=== PATIENT | female | born 1990 | race Caucasian/White ===

== ENCOUNTER 2023-06-01 18:32 | Emergency (ER) | payer BC, SELFPAY ==
[2023-06-01 18:36] VITALS: BP 120/78
[2023-06-01 18:57] LABS: % Basophils 1.3 % (0-2); % Eosinophils 1.5 % (0-6); % Immature Granulocytes 0.1 % (0-0.5); % Lymphocytes 40.1 % (20.5-51.1); % Monocytes 6.9 % (1.7-9.3); % Neutrophils 50.1 % (42.2-75.2); Absolute Basophils 0.1 10^3/uL (0-0.2); Absolute Eosinophils 0.1 10^3/uL (0-0.7); Absolute Lymphocytes 3.1 10^3/uL (1.2-3.4); Absolute Monocytes 0.5 10^3/uL (0.1-0.6); Absolute Neutrophils 3.9 10^3/uL (1.4-6.5); Hematocrit 37.8 % (37.0-47.0); Hemoglobin 13.4 g/dL (12.0-16.0); Mean Corp Hgb Conc. 35.4 g/dL (33.0-37.0); Mean Corpuscular Hgb 31.9 pg (27.0-31.0); Mean Platelet Volume 9.4 fL (7.4-10.4); Nucleated Red Blood Cells % 0 %; Platelet Count 331 10^3/uL (130-400); Red Cell Dist. Width 12.7 % (11.5-14.5); White Blood Cell Count 7.8 10^3/uL (4.8-10.8)
[2023-06-01 19:14] LABS: HCG, Serum Qualitative Screen Negative
[2023-06-01 19:17] LABS: ALT (SGPT) 12 U/L (0-35); AST (SGOT) 17 U/L (14-36); Albumin 4.5 g/dl (3.5-5.0); Alkaline Phosphatase 41 U/L (38-126); Blood Urea Nitrogen 16 mg/dl (7-17); Calcium 10.1 mg/dl (8.4-10.2); Carbon Dioxide 24 mmol/L (22-30); Chloride 103 mmol/L (98-107); Glucose 113 mg/dl (70-99); Potassium 4.6 mmol/L (3.5-5.1); Sodium 138 mmol/L (135-145); Total Bilirubin 0.6 mg/dl (0.2-1.3); eGFR > 60.00
[2023-06-01 19:26] LABS: Troponin I < 0.012 ng/ml
--- NOTE | 2023-06-01 20:01 | ED.GENMED ---
History of Present Illness
<Luciana Grullon TOBACCO STEMMER - Last Filed: 06/03/23 17:34>
General
Chief Complaint: Chest Pain
Source: patient
Exam Limitations: none
Time Seen by Provider: 06/01/23 19:49
Nursing documentation reviewed up to this point in time: agreed with
Travel History
Have you had any contact with someone who has COVID-19?: No
Do you have any symptoms of coronavirus? Fever > 100 degrees, chills, cough, shortness of breath, sore throat, loss of taste or smell, muscle aches, or headache?: No
History of Present Illness
History of Present Illness:
32-year-old female with no significant past medical history, takes no medications, states today at 10:30 AM she was sitting at her desk at work and developed right upper chest pain and pain at the same level in her back with some shortness of
breath. She states the pain came on gradually. A little while later as she reached for something with her right arm the pain became significantly worse, 9/10 for 30 seconds then it slowly faded. She had a similar episode again later as she
reached for something with her right arm. She still feels slight residual soreness in the area now 1/10.
She went to urgent care and had an EKG which they told her was abnormal and she should come here to rule out 'a clot.'
She denies shortness of breath at this time. She denies feeling faint or dizzy.
Past History
<Luciana Grullon, TOBACCO STEMMER - Last Filed: 06/03/23 17:34>
Past History
ED Past Medical History: None
ED Past Surgical History: Orthopedic
Social History
Tobacco: Non-smoker
Alcohol: Occasional
Living: with family
Employment: Employed
Review of Systems
<Luciana Grullon [employer] STEMMER - Last Filed: 06/03/23 17:34>
Review of Systems
Allergies reviewed?: Yes
All Other Systems: ROS reviewed and negative except as documented in HPI and ROS
Respiratory: Denies trouble breathing
Cardiac: Reports chest pain; Denies diaphoresis, palpitations or syncope
ABD/GI: Reports no symptoms
: Reports no symptoms
Musculoskeletal: Reports back pain
Skin: Reports no symptoms
Neurological: Reports no symptoms
Phy Exam
<Luciana Grullon, TOBACCO STEMMER - Last Filed: 06/03/23 17:34>
Physical Exam
Physical Exam:
GENERAL: No acute distress. A&Ox3.
CONSTITUTIONAL: Afebrile.
EYES: Clear, conjunctivae normal
RESPIRATORY: Regular respirations, nonlabored, lungs clear.
CARDIOVASCULAR: Regular rate and rhythm, no murmurs, no rubs.
GI: Soft, nontender, normal BS
MUSCULOSKELETAL: Tender right mid sternocostal border. Palpation immediately reproduces the symptom. There is a tender area in the mid thoracic just medial to the right scapula, palpation immediately reproduces his pain. Moves with ease. Well
perfused.
SKIN: Warm, dry, pink
PSYCH: Normal mood and affect. Well kept, interactive and appropriate
NEUROLOGIC: Awake, alert and oriented. No focal neurological deficits
Scores
<Luciana Grullon, TOBAC[employer] STEMMER - Last Filed: 06/03/23 17:34>
Heart Score for Chest Pain Patients
STEMI patient?: Not applicable
Course
<Luciana Grullon, TOBACCO STEMMER - Last Filed: 06/03/23 17:34>
Orders/Labs/Results
Orders:
Orders
06/01/23 18:41
Electrocardiogram (*1) Urgent
Reason for Study: Chest Pain
06/01/23 18:42
EKG- Treatment ONCE
Test Result ONCE
06/01/23 18:48
Complete Blood Count/With Diff Urgent
Comprehensive Metabolic Panel Urgent
HCG, Serum Qualitative Screen Urgent
Troponin I Urgent
06/01/23 20:16
D-Dimer Urgent
Abnormal Lab Results
06/01/23
18:48
MCH 31.9 H pg
(27.0-31.0)
Glucose 113 H mg/dl
(70-99)
06/01/23 18:48
06/01/23 18:48
Vital Signs
Initial and Last Documented VS:
Initial Vital Signs
Temp Pulse Resp BP Pulse Ox
98.0 F 75 16 120/78 98
06/01/23 18:36 06/01/23 18:36 06/01/23 18:36 06/01/23 18:36 06/01/23 18:36
Last Documented Vital Signs
Temp Pulse Resp BP Pulse Ox
98.0 F 69 18 101/67 100
06/01/23 18:36 06/01/23 21:50 06/01/23 21:50 06/01/23 21:50 06/01/23 21:50
<Aj Ang PA-C - Last Filed: 06/01/23 22:23>
Orders/Labs/Results
Orders:
Orders
06/01/23 18:41
Electrocardiogram (*1) Urgent
Reason for Study: Chest Pain
06/01/23 18:42
EKG- Treatment ONCE
Test Result ONCE
06/01/23 18:48
Complete Blood Count/With Diff Urgent
Comprehensive Metabolic Panel Urgent
HCG, Serum Qualitative Screen Urgent
Troponin I Urgent
06/01/23 20:16
D-Dimer Urgent
Abnormal Lab Results
06/01/23
18:48
MCH 31.9 H pg
(27.0-31.0)
Glucose 113 H mg/dl
(70-99)
06/01/23 18:48
06/01/23 18:48
Vital Signs
Initial and Last Documented VS:
Initial Vital Signs
Temp Pulse Resp BP Pulse Ox
98.0 F 75 16 120/78 98
06/01/23 18:36 06/01/23 18:36 06/01/23 18:36 06/01/23 18:36 06/01/23 18:36
Last Documented Vital Signs
Temp Pulse Resp BP Pulse Ox
98.0 F 69 18 101/67 100
06/01/23 18:36 06/01/23 21:50 06/01/23 21:50 06/01/23 21:50 06/01/23 21:50
<Luciana Grullon [employer]MER - Last Filed: 06/03/23 17:34>
MDM/Problems Addressed
Differential Diagnosis Includes:
Costochondritis, pleuritis, PE, ACS
MDM/Problems Addressed:
32-year-old female with no significant past medical history, takes no medications, states today at 10:30 AM she was sitting at her desk at work and developed right upper chest pain and pain at the same level in her back with some shortness of
breath. She states the pain came on gradually. A little while later as she reached for something with her right arm the pain became significantly worse, 9/10 for 30 seconds then it slowly faded. She had a similar episode again later as she
reached for something with her right arm. She still feels slight residual soreness in the area now 1/10.
She went to urgent care and had an EKG which they told her was abnormal and she should come here to 'get a lung CT to rule out 'a clot.'
She denies shortness of breath at this time. She denies feeling faint or dizzy.
Afebrile, NAD
EKG NSR
06/01/20232003 PM
CBC, CMP unremarkable
hCG negative
Troponin normal
Is a very well-appearing young female with no significant past medical history, as she was sent here for 'a CAT scan of my chest to rule out a clot,' no risk factors for PE but will check dimer
Case discussed with Gamaliel LEZAMA who will DC patient assuming D dimer is normal.
<Luciana Gurllon [employer]MER - Last Filed: 06/03/23 17:34>
*EKG
EKG Intrepretation Date: 06/01/23
Interpretation: normal
Rate: normal
Rhythm: sinus
[place]: normal axis
Interval: normal interval
QRS Pattern: normal QRS
Ischemia: no ischemia
*Critical Care Note
Total Time (30-74mins, 75-104mins- exclusive of procedures): Not Applicable
<TEJA Banks-Casper - Last Filed: 06/01/23 22:23>
Comment
Comment:
Patient received in signout pending a D-dimer. D-dimer was ultimately negative. Patient is stable for discharge home and continued outpatient management.
ED Attending Note
<Luciana Grullon [employer] - Last Filed: 06/03/23 17:34>
-
Portions of this chart may have been created with voice recognition software.� Occasional wrong word or��sound alike� substitutions may have occurred due to the inherent limitations of voice recognition software.
Discharge Plan
Departure
Patient Disposition: Home (Routine Discharge)
Date of Disposition: 06/01/23
Time of Disposition: 21:23
Patient with high blood pressure during this ER visit?: No
Condition: Good
Discharge Problem:
Atypical chest pain
Instructions: Chest Pain That Is Not Caused by the Heart (DC), Costochondritis (DC)
Referrals:
Your, [Other] - As needed
Activity Restrictions/Additional Instructions:
As we discussed, nothing in your workup today shows anything worrisome. Specifically no sign of a heart issue, no sign of a clot in your lung.
Tylenol or ibuprofen as needed for pain.
Interventions
Interventions:
*Risk Screen - Suicide Last Done: 06/01/23 20:20
*General Assessment Last Done: 06/01/23 20:20
*Neglect/Abuse Screening Last Done: 06/01/23 20:20
ED- Fall Risk Assessment Last Done: 06/01/23 21:50
*ED COVID-19 Vaccine History Last Done: 06/01/23 20:20
*Nursing Disposition Last Done: 06/01/23 21:50
ED- Cardiac Assessment Last Done: 06/01/23 20:20
Discharge Date and Time
Discharge Date/Time: 06/01/23 21:50
[2023-06-01 20:20] VITALS: BMI 20.9
[2023-06-01 20:24] VITALS: BP 109/73
[2023-06-01 21:00] VITALS: BP 100/71
[2023-06-01 21:15] LABS: D-Dimer < 0.27 ug/mlFEU (0.00-0.50)
[2023-06-01 21:43] VITALS: BP 101/67
[2023-06-01 21:50] VITALS: BP 101/67
== END 2023-06-01 21:50 | disposition home or self-care (01) ==
LOC: EMR 18:32
PROVIDERS: Emergency Medicine; Registered Nurse; EMERGENCY PHYSICIAN Emergency Medicine; FAMILY PHYSICIAN Family Medicine
DX: R07.89 Other chest pain (principal); R06.02 Shortness of breath; M79.601 Pain in right arm
CPT/HCPCS: 99284; 80053; 84484; 84703; 85025; 85379; 93005